=== PATIENT | female | born 1995 | race Two or more races ===

== ENCOUNTER 2020-03-23 17:51 | Emergency (ER) | payer MEDICAID ==
[~2020-03-23] VITALS: Ht 160 cm; Wt 68.0 kg
[2020-03-23 17:57] VITALS: BP 130/88
--- NOTE | 2020-03-23 18:10 | NUR ---
REFERAL TO [facility].
== END 2020-03-23 18:11 | disposition home or self-care (01) ==
LOC: ER 17:54
DX: F31.9 Bipolar disorder, unspecified (principal); F41.9 Anxiety disorder, unspecified; F90.9 Attention-deficit hyperactivity disorder, unspecified type; Z88.1 Allergy status to other antibiotic agents; Z76.0 Encounter for issue of repeat prescription